=== PATIENT | female | born 1955 | race Caucasian/White ===

== ENCOUNTER 2020-04-26 12:54 | Emergency (ER) | payer OTHER ==
[2020-04-26] MEDS ORDERED: Metoprolol Tartrate 25 MG Tab PO ONE (14:54)
--- NOTE | 2020-04-26 14:57 | EDM.PDOC ---
ED HPI GENERAL MEDICAL PROBLEM - General Chief Complaint: Eye Problems Stated Complaint: RIGHT EYE CHANGE IN VISION Time Seen by Provider: 04/26/20 14:53 Source of Information: Reports: Patient History Limitations: Reports: No Limitations - History of Present Illness INITIAL COMMENTS - FREE TEXT/NARRATIVE: PT NOTED ALOT OF FLOATERS IN HER RT EYE LAST NITE, wHEN SHE GOT UP TODAY SHE HAD SOME FLASHUING LITES. hER VISION IS OK BUT JUST NOT CLEAR USUAL. Onset: Other ( STARTED LAST NITE. ) Duration: Hour(s): Associated Symptoms: Reports: Other ( VERY LOW GRADE HEADACHE. ) Right Eye Pain Score (Numeric/FACES): 2 - Related Data Allergies Allergy/AdvReac Type Severity Reaction Status Date / Time No Known Allergies Allergy Verified 04/26/20 13:28 Home Meds: Home Meds Zolpidem Tartrate [Ambien Cr] 6.25 mg PO DAILY 04/26/20 [History] Past Medical History HEENT History: Reports: Impaired Vision [employer] History: Reports: Musculoskeletal History: Reports: Fracture, Osteoporosis Other Musculoskeletal History: fx r wrist Oncologic (Cancer) History: Reports: Breast - Infectious Disease History Infectious Disease History: Reports: Chicken Pox, Measles, Mumps - Past Surgical History Oncologic Surgical History: Reports: Biopsy of Breast, Mastectomy Social & Family History - Tobacco Use Tobacco Use Status *Q: Never Tobacco User - Caffeine Use Caffeine Use: Reports: Coffee, Soda, Tea - Alcohol Use Days Per Week of Alcohol Use: 7 Number of Drinks Per Day: 1 Total Drinks Per Week: 7 - Recreational Drug Use Recreational Drug Use: No ED ROS GENERAL - Review of Systems Review Of Systems: See Below Constitutional: Reports: No Symptoms HEENT: Reports: Vision Change, Other (PT HAS FLOATERS AND SHE HAS SOME FLASHING LITES IN THE RT EYE. sHE HAS NOT HAD A INJURY. hER BP IS MORE ELEVATED THAN USUAL. ) Respiratory: Reports: No Symptoms Cardiovascular: Reports: No Symptoms Endocrine: Reports: No Symptoms GI/Abdominal: Reports: No Symptoms : Reports: No Symptoms Musculoskeletal: Reports: No Symptoms Skin: Reports: No Symptoms ED EXAM GENERAL W FULL EYE - Physical Exam Exam: See Below Text/Narrative:: PT HAS NOTED SOME FLOATERS IN THE RT EYE LAST NITE. tODAY SHE HAS SEEN FLASHING LITES AND SHE HAD MORE FLOATERS. Exam Limited By: No Limitations General Appearance: Alert, No Apparent Distress, Anxious, Other ( tHE EYE WAS JUST MILDLY PAINFUL. ) Ears: Normal TMs Nose: Normal Inspection Throat/Mouth: Normal Inspection Head: Atraumatic Neck: Normal Inspection Respiratory/Chest: No Respiratory Distress Course - Vital Signs Last Recorded V/S: Last Vital Signs Temp 36.1 C 04/26/20 13:35 Pulse 66 04/26/20 14:59 Resp 16 04/26/20 13:35 BP 175/92 H 04/26/20 14:59 Pulse Ox 98 04/26/20 13:35 - Orders/Labs/Meds Meds: Medications Discontinued Medications Generic Name Dose Route Start Last Admin Trade Name Nirali PRN Reason Stop Dose Admin Metoprolol Tartrate 25 mg 04/26/20 14:54 04/26/20 14:59 Lopressor PO 04/26/20 14:55 25 mg ONETIME ONE Administration - Re-Assessments/Exams Free Text/Narrative Re-Assessment/Exam: 04/26/20 15:49 wHEN THE FUNDI WAS EXAMINED NO HEMMORAGE WAS SEEN. hER VISION WAS 20/20. sHE HAS VERY MILD PAIN IN THE EYE. [facility] AND THEY WILL SEE HER TO RULE OUT A RETINAL DETACHMENT OR SEPERATION OF THE VITREOUS. hER BP WAS RECHECKED AND WAS 180/100. sHE WAS GIVEN METOPROL 25 HERE AND A PERSCRIPTION TO FILL . sHE WILL FOLLOW UP WITH THAT. Departure - Departure Time of Disposition: 14:54 Disposition: Home, Self-Care 01 Condition: Fair Clinical Impression: Hypertension, Retinal and vitreous disorder - Discharge Information Instructions: Metoprolol extended-release tablets, Hypertension, Adult, [id number] Referrals: PCP,None [Primary Care Provider] - Forms: ED Department Discharge Care Plan Goals: push fluids, pt [facility], METOPROROL TAR, 25 MG DAILY, SEE REGULAR dR FOR FURTHER WORKUP REGARDING BP CHANGE AND ELEVATION Sepsis Event Note (ED) - Evaluation Sepsis Screening Result: No Definite Risk - Focused Exam Vital Signs: Vital Signs Temp Pulse Pulse Resp BP BP Pulse Ox 04/26/20 14:59 66 175/92 H 04/26/20 13:35 36.1 C 66 16 175/92 H 98 04/26/20 13:26 36.1 C 66 16 175/92 H 98
== END 2020-04-26 15:15 | disposition home or self-care (01) ==
LOC: JP.ED 12:54
DX: H43.9 Unspecified disorder of vitreous body (principal); H35.9 Unspecified retinal disorder; I10 Essential (primary) hypertension
CPT/HCPCS: 99283; A9270

== ENCOUNTER 2025-01-27 22:00 | Emergency (ER) | payer MEDICAID, OTHER ==
[2025-01-27] MEDS: methylPREDNISolone Sodium Succinate 40 MG/1 ML SDV IM ONE (22:46)
== END 2025-01-27 23:11 | disposition home or self-care (01) ==
LOC: JP.ED 22:00
DX: L50.0 Allergic urticaria (principal); Z79.899 Other long term (current) drug therapy
CPT/HCPCS: 96372; 99283; A9270; J2919